=== PATIENT | female | born 1980 | race Caucasian/White ===

== ENCOUNTER 2019-03-21 11:20 | Inpatient (IN) | payer MEDICAID, OTHER ==
[~2019-03-21] VITALS: Ht 165.1 cm; Wt 81.2 kg
[~2019-03-21 11:20] MED LIST: IRON SULFATE PO; MULT1TAB59 PO; MUSCLE RELAXANT; MUSCLE RELAXANT PO; OXYTOCIN 30 UNITS/LR 500 ML BAG IV ONE; PREN1TAB12 PO; SEVOFLURANE 15 MIN ONE
[2019-03-21 11:30] VITALS: Ht 165.1 cm; Wt 81.2 kg
--- NOTE | 2019-03-21 11:41 | TRIAGE ---
OB Triage Datetime Report Generated by CPN: 03/21/2019 11:41 Datetime: 03/21/2019 11:37 Maternal Assessment Level of Consciousness: Fully Conscious DTR's/Clonus: DTRs 1+ Headache: Denies Blurred Vision: No Respiratory Effort: Unlabored Breath Sounds, Left: Clear and Equal Breath Sounds, Right: Clear and Equal Nausea/Vomiting: Denies RUQ Epigastric Pain: Denies Facial Edema: None Labor Evaluation Frequency: 1-7 Monitor Mode: External Duration (sec)2399: 40-80 Quality: Mild Pattern: Normal: <= 5 Contractions in 10 Minutes Resting Tone Morning Sun: Relaxed Heart Rate FHR Baseline Rate: 135 Monitor Mode: External US Variability: Moderate 6-25 bpm Accelerations: 10X10 Decelerations: None Category: Category I Pain Assessment Pain Scale: 10 Pain Presence: Intermittent Pain Type: Cramping Pain Location: Back Pain Goal: 3 Vaginal Exam Dilatation (cms): 0.0 Effacement (%): 0 Station: -4 Exam By: maggie meyer Membrane Status: Intact Vaginal Bleeding: None Cervix, Consistency: Soft Cervix, Position: Posterior Datetime: 03/21/2019 11:32 EGA: 38.5 Datetime: 03/21/2019 11:25 Assessment Type: Triage Maternal Assessment Level of Consciousness: Fully Conscious DTR's/Clonus: DTRs 2+; No Clonus Headache: Denies Blurred Vision: No Respiratory Effort: Unlabored; Regular Rhythm; Equal Expansion Breath Sounds, Left: Clear and Equal Breath Sounds, Right: Clear and Equal Nausea/Vomiting: Denies RUQ Epigastric Pain: Denies Lower Extremities Edema: None Degree: None Upper Extremities Edema: None Degree: None Facial Edema: None Fall Risk Assessment History of Falling: (0) No Secondary Diagnosis: (0) No Ambulatory Aid: (0) Bedrest/Nurse Assist IV Therapy: (0) No Gait: (0) Normal/Bedrest/Immobile Mental Status: (0) Oriented to Own Ability Fall Score: 0 Fall Risk Score Definition: No Risk: No action required Datetime: 03/21/2019 11:14 Time of Arrival: 03/21/2019 11:14 Arrived By: Wheelchair Arrived From: Home Chief Complaint: pt came in c/o uc's since last night q 5-6 min Movement: Present Contractions: Regular Time Contractions Began: 03/20/2019 12:00 Contractions: 5-6 Rupture of Membranes: Denies Vaginal Discharge: Denies Recent Sexual Intercouse: Denies Abdominal Trauma: Not Applicable Additional Patient Complaints: none Time Provider Notified: 03/21/2019 11:37 Provider Notified: shiloh Initial Plan: monitor and ve
[2019-03-21] MEDS ORDERED: OXYTOCIN 30 UNITS/LR 500 ML IV SCH ×2 (12:00→17:22)
[2019-03-21] MEDS ORDERED: CARBOPROST 250 MCG INJ IM PRN ×2 (12:00→17:30)
[2019-03-21] MEDS ORDERED: MISOPROSTOL 200 MCG TAB PR PRN ×2 (12:00→17:30)
[2019-03-21] MEDS ORDERED: CEFAZOLIN 2 GM/50 ML (PMX) 50 ML IVPB SCH ×2 (12:00→21:00)
[2019-03-21] MEDS ORDERED: METHYLERGONOVINE 0.2 MG INJ IM PRN ×2 (12:00→17:30)
[2019-03-21] MEDS ORDERED: OXYTOCIN 30 UNITS/LR 500 ML IV PRN ×2 (12:00→17:30)
[2019-03-21] MEDS: LACTATED RINGER'S 1,000 ML IV SCH ×2 (12:21→12:38)
--- NOTE | 2019-03-21 12:43 | PREAC ---
Date/Time of Note Date/Time of Note DATE: 03/21/19 TIME: 12:42 Anesthesia Eval and Record Evaluation Time Pre-Procedure Interview DATE: 03/21/19 TIME: 12:42 Age 38 Sex female NPO: 8 hrs Preoperative diagnosis iup at 39 weeks Planned procedure repeat c section Past Medical History Past Medical History: None Surgery & Anesthesia Issues No known issue Meds Anticoagulation: No Beta Mike within 24 hr: No Reason Beta Mike not given: Pt. not on B-Mike Reported Medications Vit/Fe Fumarate/Fa ( 1-1 Tablet) 1 Tab Tablet, 1 TAB PO DAILY 09/06/12 [Iron Sulfate] No Conflict Check, PO 07/25/11 Multivitamins* (Multivitamins*) 1 Tab Tablet, 1 TAB PO AM 07/25/11 [Muscle Relaxant] No Conflict Check 07/25/11 [Muscle Relaxant] No Conflict Check, PO DAILY 07/25/11 Current Medications Lactated Ringer's 1,000 ml @ 125 mls/hr Q8H IV Last administered on 03/21/19at 12:38; Admin Dose 125 MLS/HR; Start 03/21/19 at 11:59 Cefazolin Sodium/ Dextrose 50 ml @ 100 mls/hr ONCE IVPB ; Start 03/21/19 at 12:00 Oxytocin/Lactated Ringer's 500 ml @ 125 mls/hr POST IV ; Start 03/21/19 at 12:00 Oxytocin/Lactated Ringer's 500 ml @ 0 mls/hr ONCE PRN IV .VAGINAL BLEEDING; Start 03/21/19 at 12:00 Methylergonovine Maleate (Methergine) 0.2 mg ONCE PRN IM .VAGINAL BLEEDING; Start 03/21/19 at 12:00 Carboprost Tromethamine (Hemabate) 250 mcg ONCE PRN IM .VAGINAL BLEEDING; Start 03/21/19 at 12:00 Misoprostol (Cytotec) 1,000 mcg ONCE PRN TN .VAGINAL BLEEDING; Start 03/21/19 at 12:00 Meds reviewed: Yes Allergies Coded Allergies: morphine (Verified Allergy, Mild, ITCHING, 03/21/19) Allergies Reviewed: Yes Labs/Studies Labs Reviewed: Reviewed by anesthesiologist Result Diagram: 03/21/19 1210 Laboratory Tests 03/21/19 12:10 test: Positive Pre-procedure Exam Airway: Adequate mouth opening, Adequate thyromental dist Mallampati: Mallampati II Teeth: Normal Lung: Normal Heart: Normal ASA Physical Status ASA physical status: 2 Emergency: None Planned Anesthetic Neuraxial: Spinal Planned Pain Management Parenteral pain med Pre-operative Attestations Prior to commencing anesthesia and surgery, the patient was re-evaluated, there was verification of: *The patient's identity *The results of appropriate recent lab work and preoperative vital signs *The above evaluation not changing prior to induction *Anesthetic plan, risk benefits, alternative and complications discussed with patient/family; questions answered; patient/family understands, accepts and wishes to proceed. LAURENT TO March 21, 2019 12:43
[2019-03-21] MEDS ORDERED: DEXAMETHASONE 4 MG/ML 1 ML INJ ONE (12:47)
[2019-03-21] MEDS ORDERED: ONDANSETRON 4 MG INJ ONE (12:47)
[2019-03-21] MEDS ORDERED: morphine SULFATE/PF (10 MG/10 ML) INJ ONE (12:47)
[2019-03-21] MEDS ORDERED: FENTAnyl 50 MCG/ML VIAL ONE (12:47)
--- NOTE | 2019-03-21 13:53 | PREOPHP ---
DATE OF ADMISSION: 03/21/2019 HISTORY OF PRESENT ILLNESS: Ms. Elizabeth Caicedo is a 38-year-old 4, para 3, EDC 03/30/20 19 intrauterine at 38 weeks and 5 days gestational age, presented to triage in early labor. She complaints of contractions since 4:00 in the afternoon yesterday. Pain scale of 10/10 during h er contractions. She reports good movement. Her care took place with Dr. Antunez. PAST MEDICAL HISTORY: None. MEDICATIONS: vitamins. PAST SURGICAL HISTORY: Times 3 previous , pancolectomy/tummy tuck. OBSTETRICAL HISTORY: Times 3 previous section. GYNECOLOGIC HISTORY: 12, regular 3 to 4 days. Denies any sexually transmitted infections. Sexually active with 1 partner. SOCIAL HISTORY: Denies any smoking, drugs or alcohol. FAMILY HISTORY: None. REVIEW OF SYSTEMS: All within normal except history of present illness. PHYSICAL EXAMINATION: HEENT: Within normal. LUNGS: CTA bilateral. CARDIOVASCULAR: S1, S2, regular rhythm. ABDOMEN: Gravid, nontender. Negative CVA bilateral. EXTREMITIES: Negative. No calf tenderness. PELVIC: Vaginal exam 1, 50, -3. heart tracing category 1, toco regular contractions. ASSESSMENT: Intrauterine at 38 weeks and 5 days gestational age, in labor, previous C-sect ion x3, desires elective repeat delivery with tubal sterilization. PLAN: Consent for a repeat section with bilateral tubal sterilization. Risks, benefits and alternatives explained. All questions were answered. Dictated By: SEBASTIÁN CORONEL/MAE Conf#: [id number] DID#: [id number]
[2019-03-21] MEDS ORDERED: DIPHENHYDRAMINE 50 MG INJ IV PRN (14:30)
[2019-03-21] MEDS ORDERED: HYDROmorphONE 0.5 MG/0.5 ML SYG IV PRN ×2 (14:30)
[2019-03-21] MEDS ORDERED: NALBUPHINE HCL (10 MG/1 ML) INJ IV PRN (14:30)
[2019-03-21] MEDS ORDERED: NALOXONE (0.4 MG/ML) INJ IV PRN (14:30)
[2019-03-21] MEDS ORDERED: ZOLPIDEM 5 MG TAB PO PRN (14:30)
[2019-03-21] MEDS ORDERED: ONDANSETRON 4 MG INJ IV PRN (14:30)
--- NOTE | 2019-03-21 15:16 | PAC ---
Date/Time of Note Date/Time of Note DATE: 03/21/19 TIME: 15:15 Post-Anesthesia Notes Post-Anesthesia Note Last documented vital signs bp 102/67 temp 98.5 O2 sat 96% p 84 Activity: WNL Respiratory function: WNL Cardiovascular function: WNL Mental status: Baseline Pain reasonably controlled: Yes Hydration appropriate: Yes Nausea/Vomiting absent: Yes LAURENT TO March 21, 2019 15:16
[2019-03-21 17:10] VITALS: BP 112/76; PULSE 69; RESP 18
[2019-03-21] MEDS ORDERED: NACL 0.9% 3 ML SYG IV SCH (17:30)
[2019-03-21] MEDS ORDERED: IBUPROFEN 600 MG TAB PO SCH (19:00)
[2019-03-21] MEDS ORDERED: HYDROCODONE/APAP (5/325) TAB PO PRN (19:00)
--- NOTE | 2019-03-21 19:19 | OPPN ---
Date/Time of Note Date/Time of Note DATE: 03/21/19 TIME: 19:16 Operative Report Planned Procedure Procedure date March 21, 2019 Procedure(s) repeat low transverse CD with bilateral tubal salpingectomy Performed by see signature line Mailing Machine Helper: LATISHA RODRIGUEZ MD 2nd Mailing Machine Helper none Pre-procedure diagnosis Intrauterine at 38 weeks and 5 days gestational age, in labor, previous x3, desires elective repeat delivery with tubal sterilization. [id number] Anesthesia Type: [id number] spinal Post-Procedure Post-procedure diagnosis same Findings a viable female 8/9 weight 3,025 grams,. normal uterus, tubes and ovaries Estimated Blood Loss: 500 - 600 mls (500) Specimen(s) right and left fallopian tube Grafts/Implant(s) none Complication(s) none SEBASTIÁN MASSEY MD March 21, 2019 19:19
[2019-03-21 19:30] VITALS: BP 108/64; PULSE 74; RESP 18
[2019-03-21] MEDS: SENNA/DOCUSATE NA (8.6MG/50MG) TAB PO SCH (20:05)
[2019-03-21] MEDS: CEFAZOLIN 2 GM/50 ML (PMX) 50 ML IVPB SCH (21:12)
[2019-03-22 00:05] VITALS: BP 92/61; PULSE 77; RESP 17
[2019-03-22] MEDS: KETOROLAC 30 MG INJ IV PRN ×2 (01:54→09:08)
[2019-03-22 04:06] VITALS: BP 103/63; PULSE 78; RESP 17
[2019-03-22] MEDS: CEFAZOLIN 2 GM/50 ML (PMX) 50 ML IVPB SCH ×2 (04:53→13:28)
[2019-03-22] MEDS: LACTATED RINGER'S 1,000 ML IV SCH ×3 (05:00→21:00)
[2019-03-22 08:00] VITALS: BP 97/54; PULSE 76; RESP 18
[2019-03-22] MEDS: SENNA/DOCUSATE NA (8.6MG/50MG) TAB PO SCH ×2 (09:08→21:40)
--- NOTE | 2019-03-22 09:37 | OPR ---
DATE OF OPERATION: 03/22/2019 PREOPERATIVE DIAGNOSES: Intrauterine at 38 weeks and 5 days gestational age, in labor, pre vious x3, desires elective repeat delivery with tubal sterilization. Declined vag inal after . POSTOPERATIVE DIAGNOSES: Intrauterine at 38 weeks and 5 days gestational age, in labor, pr evious x3, desires elective repeat delivery with tubal sterilization. Declined va ginal after . OPERATION PERFORMED: Repeat low transverse delivery with bilateral tubal salpingectomy. SURGEON: Pineda Massey M.D. FAMILY LIVING EDUCATOR: Dr. Russell. ANESTHESIA: Spinal. COMPLICATIONS: None. ESTIMATED BLOOD LOSS: 500 mL. PATHOLOGY: Left and right fallopian tube. FINDINGS: A viable female, 8 and 9 respectively at 1 and 5 minutes, weight 3025 grams. Normal uterus, tubes and ovaries. DESCRIPTION OF PROCEDURE: After explaining the risks, benefits and alternatives, the patient had con sent signed in chart, the patient was taken to the operating room where spinal anesthesia was found t o be adequate. She was then prepared and draped in normal sterile fashion in dorsal supine position with a leftward tilt. A Pfannenstiel skin incision was then made with a scalpel and carried to the u nderlying of the fascia. The fascia was incised in the midline. Incision was extended laterally wit h Bhatti scissors. The superior aspect of the fascial incision was grasped with curved clamps, elevate d and the underlying rectus muscles dissected off bluntly. Attention was then turned to the inferior aspect of incision, which in similar fashion was grasped, tented up with curved clamps and the rectu s muscles dissected off bluntly. The rectus was in midline, peritoneum identified, tented up and entered sharply with Metzenbaum scissors. The peritoneal incision was extended superiorly wit h good visualization of bladder. The bladder blade was then inserted and the lower uterine segment i ncised in transverse fashion with a scalpel. The uterine incision was extended laterally. The bladd er blade was removed and the infant's head delivered atraumatically. The nose and mouth were suction ed and cord clamped and cut. The was handed off to awaiting pesticide control inspector. The placenta was t hen removed. The uterus was cleared of all clots and debris. The uterine incision was repaired with 1-0 chromic in a running locked fashion. Second layer of same suture was used for imbrication obtai henry excellent hemostasis. At this point, a Esther was used to clamp the right fallopian tube and was ligated with a 2-0 plain gut x2 and excised and sent to pathology. Good hemostasis was noted. Similarly, the other fallopian tube was ligated and excised. The uterus was returned to the abdomen. The gutters were cleared of all clots. Interceed was applied to the anterior uterus. The peritoneum and rectus abdominis muscle s reapproximated with 2-0 Vicryl in interrupted fashion. The fascia was reapproximated with 0 PDS in a running fashion. The subcutaneous tissue was reapproximated with 2-0 plain gut in a running fashi on. The skin was closed with alisa. The patient tolerated procedure well. All counts were correc t. The patient was taken to recovery room in stable condition. Dictated By: PINEDA CORONEL/MAE Conf#: [id number] DID#: [id number] CC: PINEDA MASSEY MD;*EndCC*
[2019-03-22 12:00] VITALS: BP 100/52; PULSE 68; RESP 18
[2019-03-22] MEDS: HYDROCODONE/APAP (5/325) TAB PO PRN ×2 (13:53→18:42)
[2019-03-22 16:00] VITALS: BP 99/69; PULSE 76; RESP 16
[2019-03-22] MEDS: IBUPROFEN 600 MG TAB PO SCH ×2 (17:42→23:51)
--- NOTE | 2019-03-22 18:11 | QN ---
Documentation Comment progress note pod 1 patient was seen and evaluated no complaints vs stable afebrile ab dressing clean/dry no distention extremity no edema no calf tenderness a/ sp cd with btl pod 1 stable afebrile p/ encourage ambulation SEBASTIÁN MASSEY MD March 22, 2019 18:11
[2019-03-22 19:45] VITALS: BP 104/60; PULSE 88; RESP 18
[2019-03-23] MEDS: HYDROCODONE/APAP (5/325) TAB PO PRN ×4 (00:20→15:02)
[2019-03-23 03:38] VITALS: BP 115/67; PULSE 81; RESP 17
[2019-03-23] MEDS: IBUPROFEN 600 MG TAB PO SCH ×4 (05:57→23:43)
[2019-03-23 08:30] VITALS: BP 110/85; PULSE 86; RESP 16
[2019-03-23] MEDS: SENNA/DOCUSATE NA (8.6MG/50MG) TAB PO SCH ×2 (08:45→20:31)
[2019-03-23 16:09] VITALS: BP 116/78; PULSE 87; RESP 20
[2019-03-23] MEDS ORDERED: BISACODYL 10 MG SUPP PR PRN (18:00)
--- NOTE | 2019-03-23 18:04 | QN ---
Documentation Comment progress note pod 2 patient was seen and evaluated no complaints vs stable afebrile ab c/d/i no distention extremity no edema no calf tenderness a/ sp cd with btl pod 2 stable afebrile p/ encourage ambulation discharge home tomorrow SEBASTIÁN MASSEY MD March 23, 2019 18:04
--- NOTE | 2019-03-23 18:04 | PD.PPDC ---
CHANNEL PROCESS SUPERVISOR Discharge Instruction Condition [id number] Patient Condition: Bfoqh4i Fair Diet Pscgx1Ee Diet: Fgasa2w Resume Regular Diet Activity/Restrictions Mootw1Lo Activity: Vjpaw8e Normal Activity May Shower [id number] Restrictions: Kmvyl7s No Exercising No Lifting No Driving No Sexual Activity Nothing in the Vagina No [place] No Tampons, douche Follow-up Follow-up with Physician: 4, Day/Days Provider Information: to remove staple/stitches Return to clinic for [id number] CARDIAC REHAB NURSE Instructions: Xmsyo7l Fever greater than 101 Chills Worsening abdominal pain Excessive Vaginal Bleeding More than 2 pads per hour Unable to tolerate diet [id number] OB Instructions: Zbdxp0f Breast Tenderness Depression Blurried Vision Headache [id number] Surgical Instructions: Mamzz6a Incisional Drainage Incisional Redness SEBASTIÁN MASSEY MD March 23, 2019 18:04
[2019-03-23] MEDS ORDERED: FAMOTIDINE 20 MG TAB PO PRN (18:30)
[2019-03-23 19:35] VITALS: BP 116/73; PULSE 87; RESP 20
--- NOTE | 2019-03-23 21:29 | DS ---
DATE OF ADMISSION: 03/21/2019 DATE OF DISCHARGE: 03/23/2019 PRIMARY DIAGNOSES: Intrauterine at 38 weeks and 5-day gestational age, in labor, previous x3, desires elective repeat delivery with tubal sterilization. PROCEDURE: Repeat low transverse delivery with bilateral tubal salpingectomy. CONDITION ON DISCHARGE: Stable. ACTIVITY: None per vagina, no lifting x6 weeks. DIET: Regular. MEDICATIONS ON DISCHARGE: Motrin 800 mg p.o. q.8 hours p.r.n. pain. DISCHARGE SUMMARY: Ms. Elizabeth Caicedo underwent a repeat low transverse delivery with bilateral tubal salpingectomy on 03/21/2019. She had a viable female, 8 and 9 respectively at 1 and 5 minutes, weight 3025 grams. She had an uneventful postop day 1, 2, and 3. Her incision is c lean and dry, intact. She is ambulating, tolerating diet, positive flatulence, positive bowel moveme nt. She will follow up in the clinic this Thursday to remove her alisa. Dictated By: SEBASTIÁN CORONEL/MAE Conf#: [id number] DID#: [id number]
[2019-03-24] MEDS: HYDROCODONE/APAP (5/325) TAB PO PRN ×2 (00:34→08:32)
[2019-03-24 05:00] VITALS: BP 102/53; PULSE 78; RESP 18
[2019-03-24] MEDS: IBUPROFEN 600 MG TAB PO SCH ×3 (06:19→17:47)
[2019-03-24 08:00] VITALS: BP 116/57; PULSE 87; RESP 18
[2019-03-24] MEDS: SENNA/DOCUSATE NA (8.6MG/50MG) TAB PO SCH (08:31)
[2019-03-24] MEDS ORDERED: DIPHTH/TET/ACEL PERTUSS (ADULT) 0.5 ML VIAL IM* ONE (15:00)
[2019-03-24 16:35] VITALS: BP 126/71; PULSE 88; RESP 18
--- NOTE | 2019-03-25 18:39 | DELSUM ---
Delivery Summary A-C Datetime Report Generated by CPN: 03/25/2019 18:39 DELIVERY PERSONNEL Herbicide Service Sales Representative: Garza, Carmen MATERNAL INFORMATION Delivery Anesthesia: Spinal Medications in Delivery: SEE ANESTHESIA NOTES Delivery QBL (ml): 700 Placenta Cultured: No Maternal Complications: Other RN Comments: REPEAT IN LABOR LABOR SUMMARY EDC: 03/30/2019 00:00 No. Babies in Womb: 0 Attempted: No Labor Anesthesia: None LABOR INFORMATION Onset of Labor: 03/20/2019 12:00 Oxytocin: N/A Group B Beta Strep: Negative Antibiotics # of Doses: X 1 Antibiotics Time of Last Dose: 03/21/2019 13:35 Steroids Given: None Reason Steroids Not Administered: Not Applicable MEMBRANES Membranes Rupture Method: Artificial Rupture of Membranes: 03/21/2019 14:10 Length of Rupture (hr): 0.02 Amniotic Fluid Color: Clear Amniotic Fluid Amount: Moderate Amniotic Fluid Odor: None STAGES OF LABOR Stage 3 hr: 0 Stage 3 min: 0 Total Time in Labor hr: 26 Total Time in Labor min: 11 VAGINAL DELIVERY Episiotomy: None Laceration Extension: N/A CSECTION DELIVERY Primary Indication: Repeat Elective Secondary Indication: N/A CSection Urgency: Non Elective CSection Incidence: Repeat Labor: Labor Elective: Nonelective CSection Incision: Lower Uterine Transverse Sterilization Procedure: Sandra BABY A INFORMATION Delivery Date/Time: 03/21/2019 14:11 Method of Delivery: Born in Route : No : N/A Forceps: N/A Vacuum Extraction: N/A Shoulder Dystocia : N/A SHOULDER DYSTOCIA BABY A Infant Delivery Date/Time: 03/21/2019 14:11 PRESENTATION/POSITION BABY A Presentation: Cephalic Cephalic Presentation: Vertex Vertex Position: Right Occipital Anterior Breech Presentation: N/A PLACENTA INFORMATION BABY A Placenta Delivery Time : 03/21/2019 14:11 Placenta Method of Delivery: Spontaneous Placenta Status: Delivered SCORES BABY A Heart Rate 1 min: >100 bpm Resp Effort 1 min: Good Cry Reflex Irritability 1 min: Cough/Sneeze/Pulls Away Muscle Tone 1 min: Active Motion Color 1 min: Blue/Pale Resuscitation Effort 1 min: Tactile Stimulation SCORE 1 MIN: 8 Heart Rate 5 min: >100 bpm Resp Effort 5 min: Good Cry Reflex Irritability 5 min: Cough/Sneeze/Pulls Away Muscle Tone 5 min: Active Motion Color 5 min: Body [place], Extremit Blue Resuscitation Effort 5 min: N/A SCORE 5 MIN: 9 INFANT INFORMATION BABY A Gestational Age at Delivery: 38.5 Gestational Status: Early Term- 37- 38.6 Weeks Outcome : Liveborn Condition : Stable Infant Sex: Female IDENTIFICATION/MEDS BABY A ID Band Number: [id number] ID Band Location: Right Leg; Left Arm Sensor Number: [id number] Sensor Location : Cord Clamp Vitamin K Given : Not Given Erythromycin Given: Not Given WEIGHT/LENGTH BABY A Infant Birthweight (gm): 3025 Infant Weight (lb): 6 Weight (oz): 11 Length (in): 18.50 Infant Length (cm): 46.99 CORD INFORMATION BABY A No. Cord Vessels: 3 Nuchal Cord : N/A Cord Blood Taken: Yes Infant Suction: Mouth; Nose ASSESSMENT BABY A Complications: None Physical Findings at Delivery: Within Normal Limits Respirations: Appears Normal Infantry Assaultman/ALS Called : Yes Infant Care By: RT Transferred To: Remains with Mother
== END 2019-03-24 18:30 | disposition home or self-care (01) | DRG 785 ==
LOC: L-D 11:20 → OBT 11:20 → L-D 11:37 → OBT 11:37 → L-D 13:46 → PP1 17:03
PROVIDERS: ADMIT Obstetrics & Gynecology; ATTEND Obstetrics & Gynecology
PROC: 10D00Z1 Extraction of Products of Conception, Low, Open Approach (ICD-10-PCS; principal; 2019-03-22)
PROC: 0UB70ZZ Excision of Bilateral Fallopian Tubes, Open Approach (ICD-10-PCS; 2019-03-22)
DX: O34.219 Maternal care for unspecified type scar from previous cesarean delivery (principal); Z3A.38 38 weeks gestation of pregnancy; Z37.0 Single live birth; Z30.2 Encounter for sterilization; Z23 Encounter for immunization
CPT/HCPCS: 85025; 85048; 85610; 85730; 86592; 86850; 86900; 86901; 88302; 90715; 99464; G0463; J0690; J1100; J1170; J1885; J2274; J2405; J2590; J3010; J7120